=== PATIENT | male | born 1975 | race Caucasian/White ===

== ENCOUNTER 2021-05-24 17:11 | Emergency (ER) | payer BC, SELFPAY ==
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
[2021-05-24 17:18] VITALS: BP 129/88; PULSE 92; RESP 14; TEMP 37.1; O2SAT 96
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
[2021-05-24] MEDS: Ibuprofen 600 MG TAB PO (17:35)
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
[2021-05-24] MEDS: Ibuprofen 600 MG TAB, 6 TABS/BTL PO (18:47)
[2021-05-24] MEDS: Cyclobenzaprine 10 MG TAB PO (18:48)
== END 2021-05-24 18:50 | disposition home or self-care (01) ==
PROVIDERS: Emergency Provider Registered Nurse Emergency
DX: S29.011A Strain of muscle and tendon of front wall of thorax, initial encounter (principal); M25.511 Pain in right shoulder; V19.3XXA Pedal cyclist (driver) (passenger) injured in unspecified nontraffic accident, initial encounter
CPT/HCPCS: 99284; 71046; 71100; 73030; 99283